=== PATIENT | female | born 2000 | race Hispanic/Latino ===

== ENCOUNTER 2023-05-09 15:53 | Day surgery (SDC) | payer OTHER ==
[2023-05-09] MEDS ORDERED: hydrALAZINE 20 MG/ML VIAL SLOW IVP PRN (16:22)
[2023-05-09 16:53] VITALS: BMI 24.7
[2023-05-09 16:59] LABS: Bilirubin Neg (Negative); Blood, Urine Negative (Negative); Clarity Clear (Clear); Glucose, Urine (Dipstick) Normal (Negative); Ketone, Urine 50 mg/dL (Negative); Leukocyte Negative (Negative); Nitrite Negative (Negative); Protein, Urine (Dipstick) Negative (Neg-Trace); Urobilinogen Normal mg/dL (Less than 2)
== END 2023-05-09 18:58 | disposition home or self-care (01) ==
LOC: CSHLD/OP 15:53
PROVIDERS: ATTEND Obstetrics & Gynecology
DX: O99.891 Other specified diseases and conditions complicating pregnancy (principal); R10.30 Lower abdominal pain, unspecified; O23.593 Infection of other part of genital tract in pregnancy, third trimester; B37.31 Acute candidiasis of vulva and vagina; Z79.899 Other long term (current) drug therapy; Z3A.28 28 weeks gestation of pregnancy
CPT/HCPCS: 36415; 76815; 80053; 81001; 85025; 86850; 86900; 86901; 87040; 87077; 87086; 87480; 87510; 87660; 93005

== ENCOUNTER 2023-07-23 10:53 | Inpatient (IN) | payer OTHER, SELFPAY ==
[2023-07-23 11:57] VITALS: BMI 28.1
[2023-07-23] MEDS ORDERED: hydrALAZINE 20 MG/ML VIAL SLOW IVP PRN (12:01)
== END 2023-07-23 14:35 | disposition home or self-care (01) | DRG 833 ==
LOC: CSHLD 10:53
PROVIDERS: ADMIT Family Medicine; ATTEND Family Medicine
DX: O36.8130 Decreased fetal movements, third trimester, not applicable or unspecified (principal); O99.820 Streptococcus B carrier state complicating pregnancy; Z3A.38 38 weeks gestation of pregnancy; Z79.899 Other long term (current) drug therapy
CPT/HCPCS: 76815

== ENCOUNTER 2023-08-06 05:00 | Inpatient (IN) | payer MEDICAID, OTHER ==
[2023-08-06] MEDS ORDERED: Promethazine HCl 25 MG/ML VIAL IM PRN ×2 (13:00→23:26)
[2023-08-06] MEDS ORDERED: Ondansetron PF 4 MG/2 ML Vial IVP PRN ×2 (13:00→23:26)
[2023-08-06] MEDS ORDERED: Lidocaine 1% (PF) 30 ML VIAL SC PRN (13:00)
[2023-08-06] MEDS ORDERED: Oxytocin 30 units/NS 500 ML 500 ML IV SCH ×2 (13:00→13:15)
[2023-08-06] MEDS ORDERED: hydrALAZINE 20 MG/ML VIAL SLOW IVP PRN (13:00)
[2023-08-06] MEDS ORDERED: Diphenoxylate HCl/Atropine Tablet PO PRN (13:01)
[2023-08-06] MEDS ORDERED: Methylergonovine 0.2 MG/ML VIAL IM PRN (13:01)
[2023-08-06] MEDS ORDERED: Ibuprofen 800 MG TAB PO PRN (13:01)
[2023-08-06] MEDS ORDERED: Carboprost 250 MCG/ML AMP IM PRN (13:01)
[2023-08-06] MEDS ORDERED: Tranexamic Acid 1,000 MG/10 ML VIAL IVP PRN (13:01)
[2023-08-06] MEDS ORDERED: Acetaminophen 500 MG TAB PO PRN (13:01)
[2023-08-06] MEDS ORDERED: Misoprostol 200 MCG TAB PR PRN (13:01)
[2023-08-06] MEDS ORDERED: Misoprostol 100 MCG TAB VAG SCH (13:15)
[2023-08-06] MEDS ORDERED: Penicillin G Potassium 5 MILL.UNITS in Sodium Chloride 0.9% 100 ML IVPB SCH (13:15)
[2023-08-06 14:01] LABS: Hematocrit 39.2 % (34.9-44.5); Hemoglobin 13.3 g/dL (12.0-15.5); Mean Corpuscular HGB CONC 33.9 g/dL (32.0-36.0); Mean Corpuscular Hemoglobin 30.6 pg (27.0-33.0); Mean Corpuscular Volume 90.3 fl (81.6-98.3); Mean Platelet Volume 9.3 fl (7.4-10.4); Platelet Count 281 10x3/uL (150-450); RBC Distribution Width 13.7 % (11.5-14.5); Red Blood Cell (RBC) Count 4.34 10x6/uL (3.90-5.03); White Blood Cell (WBC) Count 9.4 10x3/uL (3.5-10.5)
[2023-08-06 16:20] LABS: Syphilis Antibody Nonreactive (Nonreactive); Syphilis Antibody Index 0.08 S/CO (<1.00 Non-Reactive)
[2023-08-06 16:25] LABS: HBSAg Index 0.16 S/CO (0-0.99); Hep B Surf Ag - L&D Non-Reactive S/CO (NonReactive)
[2023-08-06] MEDS ORDERED: Lactated Ringer's 1,000 ML IV SCH (17:15)
[2023-08-06] MEDS: Penicillin G 2.5 MILL.units 2.5 MILL.UNITS in Premix 1 BAG IVPB SCH ×2 (17:44→21:50)
[2023-08-06] MEDS ORDERED: fentaNYL/Ropivacaine Epidural 100 ML ONE (23:20)
[2023-08-06] MEDS ORDERED: Acetaminophen 325 MG TAB PO PRN (23:26)
[2023-08-06] MEDS ORDERED: diphenhydrAMINE 50 MG/ML VIAL IVP PRN (23:26)
[2023-08-06] MEDS ORDERED: Moisturizing Cream (Eucerin) 113 GM JAR TOP PRN (23:26)
[2023-08-06] MEDS ORDERED: Lactated Ringer's 500 ML IV PRN (23:26)
[2023-08-06] MEDS ORDERED: ePHEDrine Sulfate 50 MG/10 ML VIAL SLOW IVP PRN (23:26)
[2023-08-06] MEDS ORDERED: Naloxone HCl 0.4 mg/ml Vial IVP PRN ×2 (23:26)
[2023-08-06] MEDS ORDERED: Communication Order-Pharmacy FS SCH (23:30)
[2023-08-06] MEDS ORDERED: fentaNYL 2 mcg/Ropivacaine 0.2% Epidural 100 ML CADD EPIDURAL SCH (23:30)
[2023-08-07] MEDS: Penicillin G 2.5 MILL.units 2.5 MILL.UNITS in Premix 1 BAG IVPB SCH (02:20)
[2023-08-07] MEDS ORDERED: Promethazine HCl 25 MG/ML VIAL IM PRN (06:38)
[2023-08-07] MEDS ORDERED: Oxytocin 30 units/NS 500 ML 500 ML IV SCH (06:38)
[2023-08-07] MEDS ORDERED: Misoprostol 200 MCG TAB VAG PRN (06:38)
[2023-08-07] MEDS ORDERED: Milk Of Magnesia 30 ML UDCUP PO PRN (06:38)
[2023-08-07] MEDS ORDERED: Lanolin Ointment 7 GM TUBE TOP PRN (06:38)
[2023-08-07] MEDS ORDERED: Ondansetron PF 4 MG/2 ML Vial IVP PRN (06:38)
[2023-08-07] MEDS ORDERED: hydrALAZINE 20 MG/ML VIAL SLOW IVP PRN (06:38)
[2023-08-07] MEDS ORDERED: Boostrix 0.5 ML (Tdap) VIAL (>/=7 yrs of age) IM ONE (06:38)
[2023-08-07] MEDS ORDERED: Bisacodyl 10 MG SUPP PR PRN (06:38)
[2023-08-07] MEDS ORDERED: Methylergonovine 0.2 MG/ML VIAL IM PRN (06:38)
[2023-08-07] MEDS ORDERED: Benzocaine-Menthol 82.5 ML CAN TOP PRN (06:38)
[2023-08-07] MEDS: Docusate 100 MG CAP PO SCH ×2 (08:34→21:36)
[2023-08-07] MEDS: Acetaminophen 500 MG TAB PO SCH ×2 (08:35→16:46)
[2023-08-07] MEDS: Prenatal Vitamin 1 TAB PO SCH (08:35)
[2023-08-07] MEDS: Ibuprofen 800 MG TAB PO SCH ×2 (08:35→16:46)
[2023-08-07] MEDS: Ferrous Sulfate 325 MG TAB PO SCH ×2 (08:37→16:45)
[2023-08-08] MEDS: Ibuprofen 800 MG TAB PO SCH ×3 (00:52→17:21)
[2023-08-08] MEDS: Acetaminophen 500 MG TAB PO SCH ×3 (00:52→17:21)
[2023-08-08 08:05] VITALS: BP 116/58; TEMP 97.9
[2023-08-08] MEDS: Ferrous Sulfate 325 MG TAB PO SCH (08:09)
[2023-08-08] MEDS: Docusate 100 MG CAP PO SCH (08:10)
[2023-08-08] MEDS: Prenatal Vitamin 1 TAB PO SCH (08:10)
== END 2023-08-08 18:15 | disposition home or self-care (01) | DRG 768 ==
LOC: CSHLD 11:49 → CSHPP 08-07 06:00
PROVIDERS: ADMIT Family Medicine; ATTEND Family Medicine
PROC: 10H07YZ Insertion of Other Device into Products of Conception, Via Natural or Artificial Opening (ICD-10-PCS; 2023-08-06)
PROC: 10907ZC Drainage of Amniotic Fluid, Therapeutic from Products of Conception, Via Natural or Artificial Opening (ICD-10-PCS; 2023-08-06)
PROC: 10E0XZZ Delivery of Products of Conception, External Approach (ICD-10-PCS; principal; 2023-08-07)
PROC: 0UQC7ZZ Repair Cervix, Via Natural or Artificial Opening (ICD-10-PCS; 2023-08-07)
PROC: 0KQM0ZZ Repair Perineum Muscle, Open Approach (ICD-10-PCS; 2023-08-07)
DX: O48.0 Post-term pregnancy (principal); Z37.0 Single live birth; O71.3 Obstetric laceration of cervix; O98.82 Other maternal infectious and parasitic diseases complicating childbirth; O99.824 Streptococcus B carrier state complicating childbirth; Z3A.41 41 weeks gestation of pregnancy; O69.89X0 Labor and delivery complicated by other cord complications, not applicable or unspecified; O70.1 Second degree perineal laceration during delivery; B37.31 Acute candidiasis of vulva and vagina
CPT/HCPCS: 85027; 86780; 86850; 86900; 86901; 87340; J2540; J2590; J3490